=== PATIENT | female | born 1980 | race Two or more races ===

== ENCOUNTER 2020-02-02 10:15 | Emergency (ER) | payer SELFPAY ==
[~2020-02-02] VITALS: Ht 157.5 cm; Wt 84.7 kg
[2020-02-02] MEDS ORDERED: SODIUM CHLORIDE FLUSH 10ML SYR IVF ONE (11:00)
[2020-02-02] MEDS ORDERED: MORPHINE SULFATE 4 MG/ML, 1ML IVPush PRN (11:00)
[2020-02-02] MEDS ORDERED: ONDANSETRON 2MG/ML, 2ML IVPush ONE (11:00)
--- NOTE | 2020-02-02 11:01 | NUR ---
PT CAME IN CO RLQ ABD PAIN FOR "ABOUT A YEAR". BUT LATELY THE PAIN HAS BEEN GETTING WORSE. PT DENIES BLOODY STOOL OR URINARY SYMPTOMS. PT IS ACCOMPANIED BY FAMILY MEMBER. ICELANDIC SPEAKING ONLY. PROVIDED UA SAMPLE. AMBULATED SAFELY TO BATHROOM.
[2020-02-02] MEDS ORDERED: ONDANSETRON 2MG/ML, 2ML ONE (11:04)
[2020-02-02] MEDS ORDERED: MORPHINE SULFATE 4 MG/ML, 1ML ONE (11:04)
[2020-02-02 11:28] LABS: MICROSCOPIC INDICATED
[2020-02-02 11:30] LABS: BASOPHILS % (AUTO) 0 % (0-1); EOSINOPHILS % (AUTO) 3 % (1-7); LYMPHOCYTES % (AUTO) 27 % (22-44); MEAN CORPUSCULAR HEMOGLOBIN 26.8 pg (27.0-34.8); MEAN CORPUSCULAR HGB CONC 32.7 g/dL (32.4-35.8); MEAN PLATELET VOLUME 7.9 fL (7.4-10.4); MONOCYTES % (AUTO) 9 % (2-9); NEUTROPHILS % (AUTO) 62 % (42-75); PLATELET COUNT 371 x10^3/uL (130-400); RED BLOOD COUNT 5.03 x10^6/uL (3.82-5.3); RED CELL DISTRIBUTION WIDTH 15.5 % (9.6-15.2)
[2020-02-02 11:41] LABS: ALANINE AMINOTRANSFERASE 29 U/L (12-78); ALBUMIN 3.4 g/dL (3.4-5.0); ANION GAP 6 mmol/L (5-15); CALCIUM 8.7 mg/dL (8.5-10.1); CHLORIDE 109 mmol/L (98-107); CREATININE 0.63 mg/dL (0.55-1.02)
[2020-02-02 11:46] LABS: ALKALINE PHOSPHATASE 140 U/L (45-117); BILIRUBIN,TOTAL 0.4 mg/dL (0.2-1.0); MD NO; TOTAL PROTEIN 8.3 g/dL (6.4-8.2)
[2020-02-02 12:34] VITALS: BP 120/83
--- NOTE | 2020-02-02 12:39 | NUR ---
PT CRYING AT TIMES, STATES SHE'S NOT HAVING TOO MUCH PAIN BUT IT'S MORE LIKE ANXIETY. "I DON'T KNOW HOW TO EXPLAIN IT", SHE SAYS. AT . RV'WD POC WITH PT. US TECH AT NOW.
--- NOTE | 2020-02-02 13:23 | NUR ---
PT AMBULATED TO BR WITHOUT DIFFICULTY.
--- NOTE | 2020-02-02 13:29 | NUR ---
ERP AT FOR RECHECK.
== END 2020-02-02 14:03 | disposition home or self-care (01) ==
LOC: ED 11:58
DX: K80.20 Calculus of gallbladder without cholecystitis without obstruction (principal); R10.11 Right upper quadrant pain; R11.2 Nausea with vomiting, unspecified
CPT/HCPCS: 36415; 76700; 80053; 81001; 83690; 84703; 85025; 87086; 96374; 96375; 99285; J2270; J2405